=== PATIENT | male | born 1980 | race Hispanic/Latino ===

== ENCOUNTER 2023-07-22 06:29 | Day surgery (SDC) | payer BC ==
[2023-07-18 11:52] LABS: BASOPHILS # (AUTO) 0.04 K/uL (0.00-0.20); BASOPHILS % (AUTO) 0.6 % (0.0-5.0); EOSINOPHILS # (AUTO) 0.07 K/uL (0.00-0.70); EOSINOPHILS % (AUTO) 1.1 % (0.0-8.0); HEMATOCRIT 42.5 % (42-54); IMMATURE GRANULOCYTE ABSOLUTE 0.03 K/uL (0-1); LYMPHOCYTES # (AUTO) 1.5 K/uL (1.0-4.8); LYMPHOCYTES % (AUTO) 22.9 % (21.0-51.0); MEAN CORPUSCULAR HEMOGLOBIN 28.5 pg (27.0-33.0); MEAN CORPUSCULAR HGB CONC 32.9 g/dL (32.0-36.0); MEAN CORPUSCULAR VOLUME 86.6 fL (79-99); MONOCYTES # (AUTO) 0.4 K/uL (0.1-1.0); MONOCYTES % (AUTO) 6.2 % (3.0-13.0); NEUTROPHILS # (AUTO) 4.6 K/uL (1.8-7.7); NEUTROPHILS % (AUTO) 68.7 % (40.0-77.0); PLATELET COUNT (AUTO) 277 K/uL (130-400); RED BLOOD CELL COUNT(AUTO) 4.91 MIL/uL (4.50-6.20); RED CELL DISTRIBUTION WIDTH 14.2 % (11.0-15.5); WHITE BLOOD COUNT (AUTO) 6.6 K/uL (4.8-10.8)
[2023-07-18 12:00] LABS: CREATININE 0.8 mg/dL (0.5-1.3); POTASSIUM 4.3 mmol/L (3.5-5.1)
[2023-07-18 12:13] VITALS: BP 127/79; PULSE 52; RESP 17
[2023-07-22] VITALS (16 sets, daily range): BP systolic 115–132; BP diastolic 66–75; PULSE 57–89; RESP 14–19
[~2023-07-22] VITALS: Ht 182.9 cm; Wt 121.2 kg
[2023-07-22] MEDS: CEFAZOLIN SODIUM 2 GM VIAL ONE (07:46)
[2023-07-22] MEDS: LACTATED RINGERS 1000ML 1,000 ML IV ONE (07:46)
[2023-07-22] MEDS: CEFAZOLIN SODIUM 1 GM VIAL ONE (07:46)
[2023-07-22] MEDS ORDERED: BUPIVACAINE/PF 0.25% 30ML VIAL IJ ONE (08:12)
[2023-07-22] MEDS ORDERED: LIDOCAINE PF 100MG/5ML (2%) SYRINGE 5ML ONE (08:29)
[2023-07-22] MEDS ORDERED: PROPOFOL 10 MG/ML 20ML VIAL IV ONE (08:29)
[2023-07-22] MEDS ORDERED: ROCURONIUM BROMIDE 10MG/1ML 5ML VL ONE ×2 (08:29→09:26)
[2023-07-22] MEDS ORDERED: MIDAZOLAM HCL 1 MG/ML 2ML VIAL ONE (08:29)
[2023-07-22] MEDS ORDERED: FENTANYL CITRATE PF 50 MCG/1 ML 2ML VIAL ONE (08:29)
[2023-07-22] MEDS: CEFAZOLIN SODIUM 3 GM VIAL IVPB ONE (09:07)
[2023-07-22] MEDS ORDERED: DEXAMETHASONE SOD PHOSPHATE 10MG/ML 1ML VIAL ONE (10:43)
[2023-07-22] MEDS ORDERED: GLYCOPYRROLATE 0.2 MG/ML 5 ML VIAL ONE (10:44)
[2023-07-22] MEDS ORDERED: ONDANSETRON 4MG INJ ONE (10:44)
[2023-07-22] MEDS ORDERED: NEOSTIGMINE METHYLSULFATE 1MG/ML IV ONE (10:44)
[2023-07-22] MEDS ORDERED: KETOROLAC 30MG VIAL (30MG/ML) ONE (11:22)
[2023-07-22] MEDS: MEPERIDINE-PF 25 MG/ML SYG ONE (12:01)
== END 2023-07-22 13:03 | disposition home or self-care (01) ==
LOC: DAH 06:29
PROVIDERS: ATTEND Surgery
DX: K43.0 Incisional hernia with obstruction, without gangrene (principal); K76.0 Fatty (change of) liver, not elsewhere classified; I10 Essential (primary) hypertension; K44.9 Diaphragmatic hernia without obstruction or gangrene; R73.03 Prediabetes; G47.30 Sleep apnea, unspecified; E66.01 Morbid (severe) obesity due to excess calories; K21.9 Gastro-esophageal reflux disease without esophagitis; Z79.899 Other long term (current) drug therapy; Z79.01 Long term (current) use of anticoagulants; Z98.890 Other specified postprocedural states; Z98.84 Bariatric surgery status; Z68.36 Body mass index [BMI] 36.0-36.9, adult
CPT/HCPCS: 80048; 85025; 86850 ×2; 86900 ×2; 86901 ×2; 36415 ×2; 93005; 64488; 49614; A6260; A4600; A4663; J7030; A4215 ×2; J0690 ×3; J7120; J3010; J1100; J0665; J3490 ×3; J2001; J2250; J2704; J2405; J1885; J2710; J2175; G0168; A4649 ×2; C1781; A4930 ×2; A4223; A4222; A4221